=== PATIENT | male | born 1960 ===

== ENCOUNTER 2017-04-25 08:43 | Emergency (ER) | payer OTHER ==
[2017-04-25 08:53] VITALS: BP 150/93; PULSE 88
[2017-04-25 08:54] VITALS: BMI 23.3
[2017-04-25 09:12] VITALS: RESP 16; TEMP 97; O2SAT 99
--- NOTE | 2017-04-25 10:17 | ED PDOC ---
HPI: General Adult Time Seen by Provider: 04/25/17 09:05 Chief Complaint (Nursing): Trauma Chief Complaint (Provider): Trauma History Per: Patient History/Exam Limitations: no limitations Onset/Duration Of Symptoms: Days (x 14 days) Current Symptoms Are (Timing): Still Present Additional Complaint(s): 56 y/o male with past medical history of migraine presents to the ED complaining of headache, left knee and left leg pain. Patient reports that he was dizzy and he slipped and fell about two weeks ago striking the left side of his body and his head. Patient also reports that he moved to [place] recently from [place] and needs his medications refilled. Past Medical History Vital Signs: Last Vital Signs Temp 97.0 F L 04/25/17 09:08 Pulse 88 04/25/17 09:08 Resp 16 04/25/17 09:08 BP 150/93 H 04/25/17 09:08 Pulse Ox 99 04/25/17 10:19 - Medical History PMH: Anxiety, Depression, HTN, Hypothyroidism, Migraine, Seizures - Surgical History Surgical History: No Surg Hx - Family History Family History: States: Unknown Family Hx - Social History Current smoker - smoking cessation education provided: No (Former Smoker) Alcohol: None Drugs: Denies - Immunization History Hx Tetanus Toxoid Vaccination: No Hx Influenza Vaccination: No Hx Pneumococcal Vaccination: No - Home Medications Home Medications: Ambulatory Orders Medication Instructions Recorded Acetaminophen/Butalbital/Caf 1 tab PO Q8 04/25/17 [Fioricet] Baclofen [Lioresal] 20 mg PO Q12 04/25/17 Famotidine [Pepcid] 20 mg PO BID #28 tab 04/25/17 Famotidine [Pepcid] 20 mg PO DAILY 04/25/17 LORazepam [Ativan] 1 mg PO DAILY PRN 04/25/17 LORazepam [Ativan] 2 mg PO DAILY PRN 04/25/17 Loratadine [Claritin] 10 mg PO DAILY 04/25/17 Montelukast Sodium [Singulair] 10 mg PO DAILY #14 tablet 04/25/17 Montelukast [Singulair] 10 mg PO DAILY 04/25/17 Nabumetone 750 mg PO DAILY #14 tablet 04/25/17 Nabumetone [Relafen] 750 mg PO Q12 PRN 04/25/17 QUEtiapine [Seroquel] 100 mg PO DAILY 04/25/17 traMADol [Ultram] 50 mg PO Q8 04/25/17 - Allergies Allergies/Adverse Reactions: Allergies Allergy/AdvReac Type Severity Reaction Status Date / Time FISH Allergy RASH Verified 04/18/17 07:52 diphenhydramine AdvReac Verified 04/18/17 07:52 [From Benadryl] Review of Systems ROS Statement: Except As Marked, All Systems Reviewed And Found Negative (As per HPI, otherwise negative) Musculoskeletal: Positive for: Leg Pain (Left leg pain), Other (Left knee pain) Neurological: Positive for: Headache Physical Exam - Reviewed Nursing Documentation Reviewed: Yes Vital Signs Reviewed: Yes - Physical Exam Appears: Positive for: Well, Non-toxic, No Acute Distress Head Exam: Positive for: ATRAUMATIC, NORMAL INSPECTION, NORMOCEPHALIC Skin: Positive for: Normal Color, Warm, Dry, Rash (Bruise noted on left leg) Eye Exam: Positive for: Normal appearance, EOMI, PERRL ENT: Positive for: Normal ENT Inspection Neck: Positive for: Normal, Painless ROM, Supple Cardiovascular/Chest: Positive for: Regular Rate, Rhythm. Negative for: Murmur Respiratory: Positive for: Normal Breath Sounds. Negative for: Accessory Muscle Use, Respiratory Distress Gastrointestinal/Abdominal: Positive for: Normal Exam Back: Positive for: Normal Inspection Extremity: Positive for: Normal ROM. Negative for: Deformity Neurologic/Psych: Positive for: Alert, Oriented (x3) - ECG O2 Sat by Pulse Oximetry: 99 (RA) Pulse Ox Interpretation: Normal Medical Decision Making Medical Decision Making: Scribe Attestation: Documented by Gale Garcia acting as a scribe for Susan Toussaint MD. MD Aaronibe Attestation: All medical record entries made by the Scribe were at my direction and personally dictated by me. I have reviewed the chart and agree that the record accurately reflects my personal performance of the history, physical exam, medical decision making, and the department course for this patient. I have also personally directed, reviewed, and agree with the discharge instructions and disposition. 10.00a - patient awake alert. He is mobile and ambulatory. stable on his feet. will discharge Disposition - Clinical Impression Clinical Impression: Contusion, buttock - Patient ED Disposition Is Patient to be Admitted: No Doctor Will See Patient In The: Office Counseled Patient/Family Regarding: Diagnosis, Need For Followup, Rx Given - Disposition [facility]errals: [facility]Outside[facility] [Outside] Disposition: Routine/Home Disposition Time: 10:00 Condition: STABLE Prescriptions: Famotidine [Pepcid] 20 mg PO BID #28 tab Montelukast Sodium [Singulair] 10 mg PO DAILY #14 tablet Nabumetone 750 mg PO DAILY #14 tablet Instructions: Contusion in Adults (ED) Forms: [facility] (Thai) - POA Present On Arrival: Falls Or Trauma
== END 2017-04-25 10:50 | disposition home or self-care (01) ==
LOC: H.ER 08:43
DX: S30.0XXA Contusion of lower back and pelvis, initial encounter (principal); W01.0XXA Fall on same level from slipping, tripping and stumbling without subsequent striking against object, initial encounter; Y92.89 Other specified places as the place of occurrence of the external cause; E03.9 Hypothyroidism, unspecified; F32.9 Major depressive disorder, single episode, unspecified; F41.9 Anxiety disorder, unspecified; I10 Essential (primary) hypertension